=== PATIENT | male | born 1960 | race Caucasian/White ===

== ENCOUNTER 2016-11-10 09:40 | Emergency (ER) | payer OTHER ==
[~2016-11-10] VITALS: Ht 185.4 cm; Wt 97.5 kg
[2016-11-10] MEDS ORDERED: ASPI81CH PO (09:48)
[2016-11-10] MEDS ORDERED: CRES10TA32 PO (09:51)
[2016-11-10] MEDS ORDERED: HYDR-2807 PO (09:51)
[2016-11-10] MEDS ORDERED: QUIN20TA17 PO (09:51)
[2016-11-10] MEDS ORDERED: NEXI20CA PO (09:51)
[2016-11-10] MEDS ORDERED: ASPIRIN 81 MG CHEW TABLET PO ONE (10:00)
[2016-11-10] MEDS ORDERED: NITROGLYCERIN 0.4 MG SUBL TABLET SL PRN (10:30)
[2016-11-10] MEDS ORDERED: LABETALOL HCL 100 MG/20 ML VIAL IV STA (10:30)
--- NOTE | 2016-11-10 10:45 | REP ---
Clinical: Chest pain . Comparison: 10/29/2015 . Findings: The mediastinum and cardiac silhouette are stable and within normal limits for portable technique. The lung ceballos are clear without acute consolidation, effusion, or pneumothorax. Skeletal structures are intact. Impression: No acute cardiopulmonary process appreciated. Signed by Martin Guidry MD 11/10/2016 10:36 A
[2016-11-10 10:51] VITALS: BP 160/104
[2016-11-10 11:05] LABS: BASO % 0.5 % (0.0-1.0); EOS # 0.5 K/mm3 (0.0-0.50); EOS % 5.7 % (0.0-3.0); LARGE UNSTAINED CELL # 0.1 K/mm3 (0.0-0.4); LARGE UNSTAINED CELL % 1.5 % (0.0-4.0); LYMPH # 1.9 K/mm3 (1.5-4.5); LYMPH % 22.1 % (24.0-44.0); MEAN CORPUSCULAR HEMOGLOBIN 32.8 pg (27.0-33.0); MEAN CORPUSCULAR HGB CONC 34.2 g/dl (32.0-36.5); MEAN CORPUSCULAR VOLUME 96.1 fl (80.0-96.0); MONO # 0.4 K/mm3 (0.0-0.8); NEUTROPHILS # 5.3 K/mm3 (1.8-7.7); NEUTROPHILS % 65.1 % (36.0-66.0); PLATELET COUNT, AUTOMATED 210 k/mm3 (150-450); RED CELL DISTRIBUTION WIDTH 12.8 % (11.5-14.5); WHITE BLOOD COUNT 8.2 K/mm3 (4.0-10.0)
[2016-11-10 11:22] LABS: ALKALINE PHOSPHATASE 86 U/L (45-117); ALT/SGPT 32 U/L (12-78); AST/SGOT 24 U/L (15-37); BILIRUBIN,DIRECT < 0.1 MG/DL (0.0-0.2); BILIRUBIN,TOTAL 0.3 MG/DL (0.2-1.0); BLOOD UREA NITROGEN 14 MG/DL (7-18); CALCIUM LEVEL 8.5 MG/DL (8.5-10.1); CHLORIDE LEVEL 108 MEQ/L (98-107); GLUCOSE, FASTING 74 MG/DL (70-105); POTASSIUM SERUM 4.1 MEQ/L (3.5-5.1); SODIUM LEVEL 140 MEQ/L (136-145); TOTAL PROTEIN 6.8 GM/DL (6.4-8.2)
[2016-11-10] MEDS ORDERED: HEPARIN DRIP 25,000 UNITS in APPROPRIATE DILUENT 1 EA IV SCH (11:46)
[2016-11-10] MEDS ORDERED: HEPARIN SOD (PORCINE) 5000 UNITS/ML VIAL IV ONE (12:00)
[2016-11-10] MEDS ORDERED: CLOPIDOGREL 300 MG TAB (PLAVIX) PO ONE (12:00)
[2016-11-10 12:03] LABS: INR 0.87
[2016-11-10 12:22] VITALS: BP 161/100
[2016-11-10 12:46] LABS: ALBUMIN 3.7 GM/DL (3.2-5.2); ALBUMIN/GLOBULIN RATIO 1.19 (1.00-1.93); ANION GAP 6 MEQ/L (8-16); CARBON DIOXIDE LEVEL 26 MEQ/L (21-32)
--- NOTE | 2016-11-10 14:52 | ECGEPIP ---
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 RBBB POSSIBLE INFERIOR MYOCARDIAL INFARCTION, PROBABLY OLD WITH POSTERIOR EXTENSION Electronically Signed On 11-10-2016 14:52:32 EDT by Chris Hassan
== END 2016-11-10 12:27 | disposition short-term general hospital (02) ==
LOC: M ED 09:40
DX: I21.4 Non-ST elevation (NSTEMI) myocardial infarction (principal); I10 Essential (primary) hypertension; F17.210 Nicotine dependence, cigarettes, uncomplicated; Z98.61 Coronary angioplasty status